=== PATIENT | female | born 1970 | race Caucasian/White ===

== ENCOUNTER 2020-11-21 20:16 | Inpatient (IN) | payer OTHER ==
[~2020-11-21] VITALS: Ht 160 cm; Wt 123.2 kg
[2020-11-21 21:32] LABS: BASOPHIL 0.4 % (0-2); EOSINOPHIL 0 % (0-5); HGB 14.6 g/dl (12.5-16.0); LYMPHOCYTE 24.2 % (15-48); MCHC 33.2 g/dL (32.0-36.0); MCV 90.5 fL (78.0-100.0); MONOCYTE 7.4 % (0-12); MPV 9.9 fL (6.0-9.5); NEUTROPHIL 67.8 % (41-80); NRBC 0; PLT 177 K/uL (150-400); RBC 4.86 M/uL (4.20-5.40); RDW 13.5 % (11.5-14.0); WBC 5.1 K/uL (4.0-10.5)
[2020-11-21 21:50] LABS: ALBUMIN 2.9 g/dL (3.4-5.0); BILIRUBIN - TOTAL 0.6 mg/dL (0.2-1.0); BUN/CREAT RATIO (CALC) 17.9 RATIO; CREATININE 1.06 mg/dL (0.51-0.95); GLOBULIN (CALCULATION) 3.9 g/dL; POTASSIUM 4.3 mmol/L (3.5-5.1); TOTAL PROTEIN 6.8 g/dL (6.4-8.2)
[2020-11-21 21:56] LABS: LACTIC ACID 1.3 mmol/L (0.4-1.9)
--- NOTE | 2020-11-22 06:26 | NUR ---
PT STATES WORKS [employer], [employer], AND AT LEAST 16 OTHER EMPLOYEES DIAGNOSED WITH COVID THIS WEEK.
[2020-11-22] MEDS ORDERED: ZYRTEC10 M3 PO (06:41)
[2020-11-22] MEDS ORDERED: MUCUS RELIEF400 MG PO (06:45)
[2020-11-22] MEDS ORDERED: VENTOLIN HFA IN18 GM INH (06:47)
[2020-11-22 07:04] LABS: BASOPHIL 0.5 % (0-2); EOSINOPHIL 0 % (0-5); HCT 39.2 % (37.0-47.0); LYMPHOCYTE 19.4 % (15-48); MCHC 33.2 g/dL (32.0-36.0); MCV 90.3 fL (78.0-100.0); MONOCYTE 4.1 % (0-12); MPV 9.7 fL (6.0-9.5); NEUTROPHIL 75.5 % (41-80); NRBC 0; PLT 159 K/uL (150-400); RBC 4.34 M/uL (4.20-5.40); RDW 13.5 % (11.5-14.0); WBC 4.2 K/uL (4.0-10.5)
[2020-11-22 07:29] LABS: CREATININE 0.82 mg/dL (0.51-0.95); POTASSIUM 4.4 mmol/L (3.5-5.1)
[2020-11-23 06:19] LABS: BASOPHIL 0.1 % (0-2); EOSINOPHIL 0 % (0-5); HCT 39.8 % (37.0-47.0); HGB 13.1 g/dl (12.5-16.0); LYMPHOCYTE 15.6 % (15-48); MCH 29.8 pg (25.0-31.0); MCHC 32.9 g/dL (32.0-36.0); MCV 90.7 fL (78.0-100.0); MONOCYTE 5.3 % (0-12); MPV 10.1 fL (6.0-9.5); NEUTROPHIL 78.5 % (41-80); NRBC 0; PLT 188 K/uL (150-400); RBC 4.39 M/uL (4.20-5.40); RDW 13.2 % (11.5-14.0)
[2020-11-23 06:23] LABS: WBC 8.8 K/uL (4.0-10.5)
[2020-11-23 06:37] LABS: BUN/CREAT RATIO (CALC) 22.1 RATIO; CREATININE 0.68 mg/dL (0.51-0.95); POTASSIUM 4.1 mmol/L (3.5-5.1)
[2020-11-24 06:56] LABS: ALBUMIN 2.4 g/dL (3.4-5.0); BILIRUBIN - TOTAL 0.5 mg/dL (0.2-1.0); BUN/CREAT RATIO (CALC) 23.9 RATIO; C-REACTIVE PROTEIN 2.8 mg/dL (<=0.90); CREATININE 0.67 mg/dL (0.51-0.95); GLOBULIN (CALCULATION) 3.8 g/dL; POTASSIUM 4.2 mmol/L (3.5-5.1); TOTAL PROTEIN 6.2 g/dL (6.4-8.2)
[2020-11-24 07:06] LABS: BASOPHIL 0.1 % (0-2); EOSINOPHIL 0 % (0-5); HCT 39.7 % (37.0-47.0); HGB 12.9 g/dl (12.5-16.0); LYMPHOCYTE 20.6 % (15-48); MCH 30.1 pg (25.0-31.0); MCHC 32.5 g/dL (32.0-36.0); MCV 92.5 fL (78.0-100.0); MONOCYTE 7.5 % (0-12); NEUTROPHIL 71.1 % (41-80); NRBC 0; PLT 218 K/uL (150-400); RBC 4.29 M/uL (4.20-5.40); RDW 13.5 % (11.5-14.0); WBC 7.5 K/uL (4.0-10.5)
--- NOTE | 2020-11-26 18:17 | NUR ---
PATIENT WALKED TO BATHROOM AND TELE MONITOR SHOWS PATIENT DESATTED TO 79%. CHECKED ON PATIENT, BACK IN BED, STABLE AND OXYGEN BACK UP TO 92% AT THIS TIME
--- NOTE | 2020-11-27 11:02 | NUR ---
PATIENT ASSISTED TO BATHROOM. DESATTED TO 86% AMBULATING TO BR ON 10L OXIMIZER. PATIENT STATES NO DIZZINESS, RESTS BEFORE GETTING BACK UP. ASSISTED OVER TO CHAIR AT THIS TIME. ISB, NIA ENCOURAGED AND WITHIN REACH
[2020-11-28 09:27] LABS: BASOPHIL 0.2 % (0-2); EOSINOPHIL 1.6 % (0-5); HCT 40.5 % (37.0-47.0); HGB 13.4 g/dl (12.5-16.0); LYMPHOCYTE 17.7 % (15-48); MCH 30.1 pg (25.0-31.0); MCHC 33.1 g/dL (32.0-36.0); MONOCYTE 6.3 % (0-12); MPV 9.2 fL (6.0-9.5); NEUTROPHIL 72.9 % (41-80); NRBC 0; PLT 364 K/uL (150-400); RBC 4.45 M/uL (4.20-5.40); RDW 13.3 % (11.5-14.0); WBC 10.3 K/uL (4.0-10.5)
[2020-11-28 09:48] LABS: ALBUMIN 2.7 g/dL (3.4-5.0); BILIRUBIN - TOTAL 0.5 mg/dL (0.2-1.0); C-REACTIVE PROTEIN 1.1 mg/dL (<=0.90); CREATININE 0.8 mg/dL (0.51-0.95); TOTAL PROTEIN 6.7 g/dL (6.4-8.2)
--- NOTE | 2020-11-29 10:39 | NUR ---
11/29/20 A referral was made to [facility] for home 02 per patient choice. Report given to MS CHUCHO Mejia.
[2020-11-29] MEDS ORDERED: VENTOLIN HFA IN18 GM INH (16:29)
[2020-11-29] MEDS ORDERED: DECADRON6 MG PO (16:29)
== END 2020-11-29 17:10 | disposition home or self-care (01) | DRG 177 ==
LOC: FER 20:16 → FMS 11-22 04:10 → FER 11-22 04:10 → FMS 11-22 04:10
PROVIDERS: Emergency Medicine Emergency Medical Services; Internal Medicine; Nurse Practitioner; ADMIT Allergy & Immunology Allergy
PROC: 8E0ZXY6 Isolation (ICD-10-PCS; principal; 2020-11-22)
PROC: XW033E5 Introduction of Remdesivir Anti-infective into Peripheral Vein, Percutaneous Approach, New Technology Group 5 (ICD-10-PCS; 2020-11-22)
DX: U07.1 COVID-19 (principal); J12.82 Pneumonia due to coronavirus disease 2019; J96.01 Acute respiratory failure with hypoxia; Z68.42 Body mass index [BMI] 45.0-49.9, adult; Z96.651 Presence of right artificial knee joint; E66.01 Morbid (severe) obesity due to excess calories; Z79.899 Other long term (current) drug therapy; Z88.1 Allergy status to other antibiotic agents; Z98.890 Other specified postprocedural states; Z91.041 Radiographic dye allergy status; Z91.040 Latex allergy status; Z91.013 Allergy to seafood
CPT/HCPCS: 36415; 36600; 71045; 71275; 80048; 80053; 82728; 82803; 83605; 85025; 85379; 86140; 94010; 94640; 94667; 94668; 94760; 94762; C9399; J0696; J1100; J1650; J1885; J2270; J2405; J7050; J7120; J8540; Q9967; U0002